=== PATIENT | male | born 1965 | race Caucasian/White ===

== ENCOUNTER 2017-04-01 08:31 | Emergency (ER) | payer OTHER ==
--- NOTE | 2017-04-01 08:43 | EDM.PDOC ---
ED HPI GENERAL MEDICAL PROBLEM - General Chief Complaint: General Stated Complaint: INJURY TO RIB Time Seen by Provider: 04/01/17 09:54 Source of Information: Reports: Patient History Limitations: Reports: No limitations - History of Present Illness INITIAL COMMENTS - FREE TEXT/NARRATIVE: History of present illness: [] Patient presents with left rib pain after he fell onto railing at work prior to arrival. Patient denies being short of breath but has pain with breathing. He denies any other injuries no loss of consciousness. Review of systems: As per history of present illness and below otherwise all systems reviewed and negative. Past medical history: As per history of present illness and as reviewed below otherwise noncontributory. Surgical history: As per history of present illness and as reviewed below otherwise noncontributory. Social history: No reported history of drug or alcohol abuse. Family history: As per history of present illness and as reviewed below otherwise noncontributory. Physical exam: General: Well developed, well nourished in NAD HEENT: Atraumatic, normocephalic, pupils reactive, negative for conjunctival pallor or scleral icterus, mucous membranes moist, throat clear, neck supple, nontender, trachea midline. Lungs: Clear to auscultation, breath sounds equal bilaterally, chest nontender. Heart: S1S2, regular, negative for clicks, rubs, or JVD. Abdomen: Soft, nondistended, nontender. Negative for masses or hepatosplenomegaly. Negative for costovertebral tenderness. Pelvis: Stable nontender. Genitourinary: Deferred. Rectal: Deferred. Extremities: Atraumatic, negative for cords or calf pain. Neurovascular unremarkable. Neuro: Awake, alert, oriented. Cranial nerves II through XII unremarkable. Cerebellum unremarkable. Motor and sensory unremarkable throughout. Exam nonfocal. Diagnostics: [] Chest x-ray negative for pneumothorax no obvious rib fractures noted Therapeutics: [] Dilaudid given in the ED Impression: [] Chest wall rib contusion Plan: [] Tramadol for pain incentive spirometry to encourage deep breathing Definitive disposition and diagnosis as appropriate pending reevaluation and review of above. Left Chest Pain Score (Numeric/FACES): 10 - Related Data Allergies Allergy/AdvReac Type Severity Reaction Status Date / Time No Known Allergies Allergy Verified 04/01/17 08:43 Home Meds: Home Meds traMADol HCl [Tramadol HCl] 50 mg PO Q6H PRN #20 tablet 04/01/17 [Rx] ED ROS GENERAL - Review of Systems Review Of Systems: See Below (See history of present illness) ED EXAM, GENERAL - Physical Exam Exam: See Below (See history of present illness) Course - Vital Signs Last Recorded V/S: Last Vital Signs Temp 36.4 C 04/01/17 08:41 Pulse 102 H 04/01/17 08:41 Resp 24 H 04/01/17 08:41 BP 167/95 H 04/01/17 08:41 Pulse Ox 94 L 04/01/17 08:41 - Orders/Labs/Meds Meds: Medications Discontinued Medications Generic Name Dose Route Start Last Admin Trade Name Freq PRN Reason Stop Dose Admin Hydromorphone HCl 0.5 mg 04/01/17 08:54 Dilaudid IVPUSH Q1H PRN Pain Hydromorphone HCl 0.5 mg 04/01/17 08:59 04/01/17 09:18 Dilaudid IM 04/01/17 09:00 0.5 mg ONETIME ONE Administration Ondansetron HCl 4 mg 04/01/17 08:54 04/01/17 09:19 Zofran Odt PO 04/01/17 08:55 4 mg ONETIME ONE Administration Tramadol HCl 100 mg 04/01/17 09:50 Ultram PO 04/01/17 09:51 ONETIME ONE Departure - Departure Time of Disposition: 09:52 Disposition: Home, Self-Care 01 Condition: good Clinical Impression: Contusion of rib on left side Qualifiers: Encounter type: initial encounter Qualified Code(s): S20.212A - Contusion of left front wall of thorax, initial encounter Prescriptions: traMADol HCl [Tramadol HCl] 50 mg PO Q6H PRN #20 tablet PRN Reason: Pain Referrals: PCP,None [Primary Care Provider] - Forms: ED Department Discharge Additional Instructions: The following information is given to patients seen in the emergency department who are being discharged to home. This information is to outline your options for follow-up care. We provide all patients seen in our emergency department with a follow-up referral. The need for follow-up, as well as the timing and circumstances, are variable depending upon the specifics of your emergency department visit. If you don't have a primary care physician on staff, we will provide you with a referral. We always advise you to contact your personal physician following an emergency department visit to inform them of the circumstance of the visit and for follow-up with them and/or the need for any referrals to a consulting specialist. The emergency department will also refer you to a specialist when appropriate. This referral assures that you have the opportunity for follow-up care with a specialist. All of these measure are taken in an effort to provide you with optimal care, which includes your follow-up. Under all circumstances we always encourage you to contact your private physician who remains a resource for coordinating your care. When calling for follow-up care, please make the office aware that this follow-up is from your recent emergency room visit. If for any reason you are refused follow-up, please contact the [facility] Emergency Department at and asked to speak to the emergency department charge nurse. Tramadol for pain, return to the ER immediately if any sudden shortness of breath, worsening pain or fevers occur [facility] [address] [place] [id number]
[2017-04-01] MEDS ORDERED: HYDROmorphone 1 MG/ML Syringe IVPUSH PRN (08:54)
[2017-04-01] MEDS ORDERED: Ondansetron 4 MG Tab.DIS PO ONE (08:54)
[2017-04-01] MEDS ORDERED: HYDROmorphone 1 MG/ML Syringe IM ONE (08:59)
--- NOTE | 2017-04-01 09:42 | CR ---
EXAMINATION: Two-view chest (PA and Lateral views). HISTORY: Shortness of breath. FINDINGS: The trachea is midline. The cardiomediastinal silhouette is within normal limits. Mild basilar atele ctasis/infiltrate. No pleural effusion or pneumothorax. Osseous structures appear unremarkable. IMPRESSION: Mild bibasilar atelectasis/infiltrate.
[2017-04-01] MEDS ORDERED: traMADol 50 MG Tab PO ONE (09:50)
[2017-04-01 11:55] VITALS: BP 149/89
== END 2017-04-01 10:35 | disposition home or self-care (01) ==
LOC: MW.ED 08:31
DX: S20.212A Contusion of left front wall of thorax, initial encounter (principal)
CPT/HCPCS: 71020; 96372; 99283; A9270; J1170; 99284

== ENCOUNTER 2019-02-02 16:32 | Inpatient (IN) | payer OTHER, MEDICAID ==
[2019-02-02] MEDS ORDERED: Hyoscyamine 0.125 MG Tab.SL SL PRN (16:40)
[2019-02-02] MEDS ORDERED: Albuterol 8 GM Inhaler INH PRN (16:44)
[2019-02-02] MEDS ORDERED: Ondansetron 8 MG Tab.DIS PO PRN (16:45)
[2019-02-02] MEDS ORDERED: Haloperidol 1 MG Tab PO PRN (16:46)
--- NOTE | 2019-02-02 16:47 | PCM.HP ---
H&P History of Present Illness - General Date of Service: 02/02/19 Admit Problem/Dx: Admission Diagnosis/Problem Admission Diagnosis/Problem Intractable pain Source of Information: Patient History Limitations: Reports: No Limitations - Related Data Allergies/Adverse Reactions: Allergies Allergy/AdvReac Type Severity Reaction Status Date / Time No Known Allergies Allergy Verified 04/01/17 08:43 Home Medications: Home Meds traMADol HCl [Tramadol HCl] 50 mg PO Q6H PRN #20 tablet 04/01/17 [Rx] Past Medical History - Past Health History Medical/Surgical History: Denies Medical/Surgical History Cardiovascular History: Reports: Hypertension Respiratory History: Reports: Bronchitis, Recurrent - Infectious Disease History Infectious Disease History: Reports: Chicken Pox Social & Family History - Family History Family Medical History: Noncontributory - Caffeine Use Caffeine Use: Reports: None Orders Last 24hrs: Active Orders 24 hr Category Date Time Status Patient Status [ADT] Routine ADT 02/02/19 16:41 Ordered Oxygen Therapy [RC] PRN Care 02/02/19 16:41 Ordered Up With Assistance [RC] ASDIRECTED Care 02/02/19 16:41 Ordered VTE/DVT Education [RC] PER UNIT ROUTINE Care 02/02/19 16:41 Ordered Vital Signs [RC] Q12H Care 02/02/19 16:41 Ordered Regular Diet [DIET] Diet 02/02/19 Dinner Ordered Methadone Med 02/02/19 18:30 Ordered 20 mg PO Q8H Morphine Med 02/02/19 16:45 Ordered 90 mg PO Q4H PRN Respiratory Rate [OM.PC] Routine Oth 02/02/19 16:46 Ordered Resuscitation Status Routine Resus Stat 02/02/19 16:41 Ordered
[2019-02-02] MEDS ORDERED: Furosemide 40 MG Tab PO PRN (16:49)
[2019-02-02] MEDS ORDERED: Polyethylene Glycol 3350 Powder 17 GM Packet PO PRN (16:51)
[2019-02-02] MEDS ORDERED: Nicotine 14 MG/24 Hr Patch TRDERM PRN (16:54)
--- NOTE | 2019-02-02 17:39 | PCM.HP ---
H&P History of Present Illness - General Date of Service: 02/02/19 Admit Problem/Dx: Admission Diagnosis/Problem Admission Diagnosis/Problem Intractable pain - History of Present Illness Initial Comments - Free Text/Narative: The patient is a 53-year-old male who was a direct admit from hospice for intractable pain. The patient has a history of stage IV lung cancer with metastases to the bone and has been on hospice. He was taking OxyContin and morphine, but that was not controlling his pain. Today, he reports pain all over. He denies chest pain or shortness of breath. He is on oxygen. He was very somnolent and doesn't doesn't really respond to questions, family is at bedside. He is unable to give us a past medical or surgical history. Family is at bedside but doesn't know the history either. Per home health/hospice records. He has a history of hypertension,COPD, PE, type 2 diabetes, CAD, [place] and AAA. - Related Data Allergies/Adverse Reactions: Allergies Allergy/AdvReac Type Severity Reaction Status Date / Time No Known Allergies Allergy Verified 04/01/17 08:43 Home Medications: Home Meds traMADol HCl [Tramadol HCl] 50 mg PO Q6H PRN #20 tablet 04/01/17 [Rx] Past Medical History - Past Health History Medical/Surgical History: Denies Medical/Surgical History Cardiovascular History: Reports: Hypertension Respiratory History: Reports: Bronchitis, Recurrent, COPD Musculoskeletal History: Reports: Arthritis Endocrine/Metabolic History: Reports: Diabetes, Type II Oncologic (Cancer) History: Reports: Bone, Lung - Infectious Disease History Infectious Disease History: Reports: Chicken Pox Social & Family History - Family History Family Medical History: Noncontributory - Tobacco Use Smoking Status *Q: Current Every Day Smoker Years of Tobacco use: 1 Packs/Tins Daily: 1 - Caffeine Use Caffeine Use: Reports: None - Recreational Drug Use Recreational Drug Use: No H&P Review of Systems - Review of Systems: Review Of Systems: Unable To Obtain (patient is somnolent but did say he has pain all over. Denies chest pain or shortness of breath currently) Exam - Exam Exam: See Below - Vital Signs Weight: 82.554 kg - Exam Quality Assessment: Supplemental Oxygen General: Lethargic Lungs: Normal Respiratory Effort, Decreased Breath Sounds Cardiovascular: Regular Rate, Regular Rhythm GI/Abdominal Exam: Normal Bowel Sounds, Soft, Non-Tender, No Distention Skin: Warm, Dry, Intact Problem List Initiated/Reviewed/Updated: Yes Orders Last 24hrs: Active Orders 24 hr Category Date Time Status Patient Status [ADT] Routine ADT 02/02/19 16:41 Active Enema [RC] ASDIRECTED Care 02/02/19 16:57 Active Oxygen Therapy [RC] PRN Care 02/02/19 16:41 Active RT Post Treatment Assessment [RC] Click to Edit Care 02/02/19 16:45 Active RT Pre-Treatment Assessment [RC] Click to Edit Care 02/02/19 16:45 Active Up With Assistance [RC] ASDIRECTED Care 02/02/19 16:41 Active VTE/DVT Education [RC] PER UNIT ROUTINE Care 02/02/19 16:41 Active Vital Signs [RC] Q12H Care 02/02/19 16:41 Active Regular Diet [DIET] Diet 02/02/19 Dinner Active Albuterol [Ventolin HFA] Med 02/02/19 16:44 Active 2 gm INH Q2H PRN Dexamethasone Med 02/03/19 09:00 Active 1 mg PO DAILY Docusate Sodium/Sennosides [Senna Plus] Med 02/02/19 16:37 Active 2 tab PO BID PRN Furosemide [Lasix] Med 02/02/19 16:49 Active 40 mg PO DAILY PRN Haloperidol [Haldol] Med 02/02/19 16:46 Active 1 mg PO Q6H PRN Hyoscyamine [Hyomax-SL] Med 02/02/19 16:40 Active 0.125 mg SL Q4H PRN LORazepam [Ativan] Med 02/02/19 16:40 Active 1 mg PO Q8H PRN Magnesium Hydroxide [Milk of Magnesia] Med 02/02/19 16:47 Active 30 ml PO DAILY PRN Methadone Med 02/02/19 18:30 Active 20 mg PO Q8HR Metoprolol Succinate [Toprol XL] Med 02/03/19 09:00 Active 100 mg PO DAILY Mirtazapine [Remeron] Med 02/02/19 21:00 Active 15 mg PO BEDTIME Morphine Med 02/02/19 16:45 Active 90 mg PO Q4H PRN Nicotine [Habitrol] Med 02/02/19 16:54 Active 14 mg TRDERM Q24H PRN Omeprazole Med 02/03/19 07:30 Active 20 mg PO ACBREAKFAST Ondansetron [Zofran ODT] Med 02/02/19 16:45 Active 8 mg PO Q8H PRN Polyethylene Glycol 3350 [MiraLAX] Med 02/02/19 16:51 Active 17 gm PO DAILY PRN Psyllium Husk/Aspartame [Metamucil Sugar Free] Med 02/03/19 09:00 Active 1 pkt PO DAILY Rivaroxaban [Xarelto] Med 02/03/19 09:00 Active 20 mg PO DAILY Respiratory Rate [OM.PC] Routine Oth 02/02/19 16:46 Ordered Resuscitation Status Routine Resus Stat 02/02/19 16:41 Ordered Medication Orders Albuterol (Ventolin Hfa) 2 gm INH Q2H PRN PRN Reason: Shortness of Breath Dexamethasone (Dexamethasone) 1 mg PO DAILY [facility] Furosemide (Lasix) 40 mg PO DAILY PRN PRN Reason: Other Haloperidol (Haldol) 1 mg PO Q6H PRN PRN Reason: Other Hyoscyamine (Hyomax-Sl) 0.125 mg SL Q4H PRN PRN Reason: Other Lorazepam (Ativan) 1 mg PO Q8H PRN PRN Reason: Anxiety Magnesium Hydroxide (Milk Of Magnesia) 30 ml PO DAILY PRN PRN Reason: Constipation Methadone HCl (Methadone) 20 mg PO Q8HR [facility] Metoprolol Succinate (Toprol Xl) 100 mg PO DAILY [facility] Mirtazapine (Remeron) 15 mg PO BEDTIME [facility] Morphine Sulfate (Morphine) 90 mg PO Q4H PRN PRN Reason: Breakthrough Pain Nicotine (Habitrol) 14 mg TRDERM Q24H PRN PRN Reason: nicotine replacement Omeprazole (Omeprazole) 20 mg PO ACBREAKFAST [facility] Ondansetron HCl (Zofran Odt) 8 mg PO Q8H PRN PRN Reason: Nausea Polyethylene Glycol (Miralax) 17 gm PO DAILY PRN PRN Reason: Constipation Psyllium Husk (Metamucil Sugar Free) 1 pkt PO DAILY [facility] Rivaroxaban (Xarelto) 20 mg PO DAILY [facility] Senna/Docusate Sodium (Senna Plus) 2 tab PO BID PRN PRN Reason: Constipation Assessment/Plan Comment:: 1. Admit as inpatient 2. Code Status- DNR/DNI/comfort care measures 3. Vitals per shift 4. Diet-regular 5. Intractable pain secondary to stage IV lung cancer with mets to the bone on hospice- Will start the patient on methadone 20 mg TID with morphine IR 90 mg q4 for breakthrough pain. PRN meds for constipation and nausea/vomiting, secretions, SOB, anxiety ordered. 6. Chronic conditions- HTN, hx PE- continue home meds
[2019-02-02] MEDS: Methadone 10 MG Tab PO SCH (18:24)
[2019-02-02] MEDS: Mirtazapine 15 MG Tab PO SCH (21:08)
[2019-02-03] MEDS: Morphine 15 MG Tab PO PRN ×3 (03:54→15:26)
[2019-02-03] MEDS: Methadone 10 MG Tab PO SCH ×3 (06:12→23:21)
[2019-02-03] MEDS: Omeprazole 20 MG Cap.CR PO SCH ×2 (06:13→06:36)
[2019-02-03] MEDS: Metoprolol Succinate 100 MG Tab.ER PO SCH (08:21)
[2019-02-03] MEDS: Rivaroxaban 10 MG Tab PO SCH (08:25)
[2019-02-03] MEDS: Psyllium Husk Powder Sugar Free 5.85 GM Packet PO SCH (09:01)
--- NOTE | 2019-02-03 09:16 | PCM.PN ---
- General Info Date of Service: 02/03/19 Subjective Update: The patient is a 53 year old male with stage IV lung cancer with mets to the bone who was admitted as inpatient hospice for intractable pain. We have changed his pain medications to methadone TID with morphine q4 for breakthrough. He reports he still has pain at a 8/10 but his pain is better here than it was at home. He denies any chest pain or abdominal pain. He does complain of SOB and pain in his hips and back. - Review of Systems General: Reports: No Symptoms HEENT: Reports: No Symptoms Pulmonary: Reports: Shortness of Breath Cardiovascular: Reports: No Symptoms Gastrointestinal: Reports: No Symptoms Genitourinary: Reports: No Symptoms Musculoskeletal: Reports: Back Pain, Joint Pain (hip) Neurological: Reports: No Symptoms Psychiatric: Reports: No Symptoms - Patient Data Vitals - Most Recent: Last Vital Signs Temp 97.3 F 02/03/19 08:00 Pulse 95 02/03/19 08:21 Resp 13 02/03/19 08:00 BP 121/73 02/03/19 08:21 Pulse Ox 93 L 02/03/19 08:00 Weight - Most Recent: 82.554 kg Med Orders - Current: Current Medications Albuterol (Ventolin Hfa) 2 gm INH Q2H PRN PRN Reason: Shortness of Breath Dexamethasone (Dexamethasone) 1 mg PO DAILY [facility] Last Admin: 02/03/19 09:00 Dose: 1 mg Furosemide (Lasix) 40 mg PO DAILY PRN PRN Reason: Other Haloperidol (Haldol) 1 mg PO Q6H PRN PRN Reason: Other Hyoscyamine (Hyomax-Sl) 0.125 mg SL Q4H PRN PRN Reason: Other Lorazepam (Ativan) 1 mg PO Q8H PRN PRN Reason: Anxiety Magnesium Hydroxide (Milk Of Magnesia) 30 ml PO DAILY PRN PRN Reason: Constipation Methadone HCl (Methadone) 20 mg PO Q8HR [facility] Last Admin: 02/03/19 06:12 Dose: 20 mg Metoprolol Succinate (Toprol Xl) 100 mg PO DAILY [facility] Last Admin: 02/03/19 08:21 Dose: 100 mg Mirtazapine (Remeron) 15 mg PO BEDTIME [facility] Last Admin: 02/02/19 21:08 Dose: 15 mg Morphine Sulfate (Morphine) 90 mg PO Q4H PRN PRN Reason: Breakthrough Pain Last Admin: 02/03/19 03:54 Dose: 90 mg Nicotine (Habitrol) 14 mg TRDERM Q24H PRN PRN Reason: nicotine replacement Omeprazole (Omeprazole) 20 mg PO ACBREAKFAST [facility] Last Admin: 02/03/19 06:36 Dose: Not Given Ondansetron HCl (Zofran Odt) 8 mg PO Q8H PRN PRN Reason: Nausea Polyethylene Glycol (Miralax) 17 gm PO DAILY PRN PRN Reason: Constipation Psyllium Husk (Metamucil Sugar Free) 1 pkt PO DAILY [facility] Last Admin: 02/03/19 09:01 Dose: 1 pkt Rivaroxaban (Xarelto) 20 mg PO DAILY [facility] Last Admin: 02/03/19 08:25 Dose: 20 mg Senna/Docusate Sodium (Senna Plus) 2 tab PO BID PRN PRN Reason: Constipation - Exam Quality Assessment: Supplemental Oxygen General: Alert, Oriented, Cooperative Lungs: Decreased Breath Sounds Cardiovascular: Regular Rate, Regular Rhythm GI/Abdominal Exam: Normal Bowel Sounds, Soft, Non-Tender, No Distention Extremities: No Pedal Edema Skin: Warm, Dry Neurological: No New Focal Deficit Psy/Mental Status: Alert, Normal Affect, Normal Mood - Problem List Review Problem List Initiated/Reviewed/Updated: Yes - Plan Plan:: 1. Intractable pain secondary to stage IV lung cancer with mets to the bone on hospice- Continue on methadone 20 mg TID with morphine IR 90 mg q4 for breakthrough pain. Patient reports better control of pain here in hospital compared to at home. PRN meds for constipation and nausea/vomiting, secretions, SOB, anxiety ordered. Home Health/Hospice did see the patient today and recommended increasing his dexamethasone from 1mg to 4 mg for bone pain. That order has been placed. 2. Chronic conditions- HTN, hx PE- continue home meds
[2019-02-03] MEDS: Mirtazapine 15 MG Tab PO SCH (23:21)
[2019-02-04] MEDS: Morphine 15 MG Tab PO PRN ×4 (01:00→21:22)
[2019-02-04] MEDS: LORazepam 1 MG Tab PO PRN (01:04)
[2019-02-04] MEDS: Methadone 10 MG Tab PO SCH ×3 (06:32→22:58)
[2019-02-04] MEDS: Omeprazole 20 MG Cap.CR PO SCH (06:33)
[2019-02-04] MEDS: Rivaroxaban 10 MG Tab PO SCH (08:57)
[2019-02-04] MEDS: Dexamethasone 4 MG Tab PO SCH (08:58)
[2019-02-04] MEDS: Metoprolol Succinate 100 MG Tab.ER PO SCH (08:58)
[2019-02-04] MEDS: Psyllium Husk Powder Sugar Free 5.85 GM Packet PO SCH (09:00)
--- NOTE | 2019-02-04 11:50 | PCM.PN ---
- General Info Date of Service: 02/04/19 Subjective Update: The patient is a 53 year old male who stage 4 lung cancer with mets to the bones who was admitted for intractable pain on hospice. The current medication regiment is working well. He states he much is a lot better. They are currently working on half-way placement as he will not be able to go home as he will not be able to go home and take care of himself. - Review of Systems General: Reports: No Symptoms HEENT: Reports: No Symptoms Pulmonary: Reports: Shortness of Breath Cardiovascular: Reports: No Symptoms Gastrointestinal: Reports: No Symptoms Genitourinary: Reports: No Symptoms Musculoskeletal: Reports: No Symptoms Skin: Reports: No Symptoms Neurological: Reports: No Symptoms Psychiatric: Reports: No Symptoms - Patient Data Vitals - Most Recent: Last Vital Signs Temp 97.8 F 02/04/19 09:00 Pulse 85 02/04/19 08:58 Resp 16 02/04/19 09:00 BP 121/75 02/04/19 09:00 Pulse Ox 96 02/04/19 09:00 Weight - Most Recent: 82.554 kg Med Orders - Current: Current Medications Albuterol (Ventolin Hfa) 2 gm INH Q2H PRN PRN Reason: Shortness of Breath Dexamethasone (Dexamethasone) 4 mg PO DAILY [facility] Last Admin: 02/04/19 08:58 Dose: 4 mg Furosemide (Lasix) 40 mg PO DAILY PRN PRN Reason: Other Haloperidol (Haldol) 1 mg PO Q6H PRN PRN Reason: Other Hyoscyamine (Hyomax-Sl) 0.125 mg SL Q4H PRN PRN Reason: Other Lorazepam (Ativan) 1 mg PO Q8H PRN PRN Reason: Anxiety Last Admin: 02/04/19 01:04 Dose: 1 mg Magnesium Hydroxide (Milk Of Magnesia) 30 ml PO DAILY PRN PRN Reason: Constipation Methadone HCl (Methadone) 20 mg PO Q8HR [facility] Last Admin: 02/04/19 06:32 Dose: 20 mg Metoprolol Succinate (Toprol Xl) 100 mg PO DAILY [facility] Last Admin: 02/04/19 08:58 Dose: 100 mg Mirtazapine (Remeron) 15 mg PO BEDTIME [facility] Last Admin: 02/03/19 23:21 Dose: Not Given Morphine Sulfate (Morphine) 90 mg PO Q4H PRN PRN Reason: Breakthrough Pain Last Admin: 02/04/19 09:30 Dose: 90 mg Nicotine (Habitrol) 14 mg TRDERM Q24H PRN PRN Reason: nicotine replacement Omeprazole (Omeprazole) 20 mg PO ACBREAKFAST [facility] Last Admin: 02/04/19 06:33 Dose: 20 mg Ondansetron HCl (Zofran Odt) 8 mg PO Q8H PRN PRN Reason: Nausea Polyethylene Glycol (Miralax) 17 gm PO DAILY PRN PRN Reason: Constipation Psyllium Husk (Metamucil Sugar Free) 1 pkt PO DAILY [facility] Last Admin: 02/04/19 09:00 Dose: Not Given Rivaroxaban (Xarelto) 20 mg PO DAILY [facility] Last Admin: 02/04/19 08:57 Dose: 20 mg Senna/Docusate Sodium (Senna Plus) 2 tab PO BID PRN PRN Reason: Constipation Discontinued Medications Dexamethasone (Dexamethasone) 1 mg PO DAILY [facility] Last Admin: 02/03/19 09:00 Dose: 1 mg Dexamethasone (Dexamethasone) 3 mg PO NOW STA Stop: 02/03/19 10:10 Last Admin: 02/03/19 10:41 Dose: 3 mg - Exam Quality Assessment: Supplemental Oxygen General: Alert, Oriented, Cooperative Lungs: Normal Respiratory Effort, Decreased Breath Sounds Cardiovascular: Regular Rate, Regular Rhythm GI/Abdominal Exam: Normal Bowel Sounds, Soft, Non-Tender, No Distention Extremities: No Pedal Edema Skin: Warm, Dry, Intact Neurological: No New Focal Deficit Psy/Mental Status: Alert, Normal Affect, Normal Mood - Problem List Review Problem List Initiated/Reviewed/Updated: Yes - Plan Plan:: 1. Intractable pain secondary to stage IV lung cancer with mets to the bone on hospice- Continue on methadone 20 mg TID with morphine IR 90 mg q4 for breakthrough pain. Patient reports better control of pain here in hospital compared to at home. PRN meds for constipation and nausea/vomiting, secretions, SOB, anxiety ordered. Hospice and case management are working on half-way placement. 2. Chronic conditions- HTN, hx PE- continue home meds
[2019-02-04] MEDS: Mirtazapine 15 MG Tab PO SCH (21:22)
[2019-02-05] MEDS: Methadone 10 MG Tab PO SCH ×3 (07:58→21:35)
[2019-02-05] MEDS: Omeprazole 20 MG Cap.CR PO SCH (07:59)
--- NOTE | 2019-02-05 08:47 | PCM.PN ---
- General Info Date of Service: 02/05/19 Subjective Update: The patient is a 53 year old male admitted for intractable pain on hospice due to stage 4 lung cancer and mets to the bone. Current regiment is working for pain control. Social work working with patient and family about placement. Patient denies any problems this morning. - Review of Systems General: Reports: No Symptoms HEENT: Reports: No Symptoms Pulmonary: Reports: No Symptoms Cardiovascular: Reports: No Symptoms Gastrointestinal: Reports: No Symptoms Genitourinary: Reports: No Symptoms Musculoskeletal: Reports: Back Pain Skin: Reports: No Symptoms Neurological: Reports: No Symptoms Psychiatric: Reports: No Symptoms - Patient Data Vitals - Most Recent: Last Vital Signs Temp 96.3 F 02/04/19 19:25 Pulse 86 02/04/19 19:25 Resp 16 02/04/19 19:25 BP 112/70 02/04/19 19:25 Pulse Ox 96 02/04/19 19:25 Weight - Most Recent: 82.554 kg I&O - Last 24 Hours: Intake & Output 02/04/19 02/05/19 02/05/19 22:59 06:59 14:59 Intake Total 300 Output Total 0 Balance 300 Med Orders - Current: Current Medications Albuterol (Ventolin Hfa) 2 gm INH Q2H PRN PRN Reason: Shortness of Breath Dexamethasone (Dexamethasone) 4 mg PO DAILY [facility] Last Admin: 02/04/19 08:58 Dose: 4 mg Furosemide (Lasix) 40 mg PO DAILY PRN PRN Reason: Other Haloperidol (Haldol) 1 mg PO Q6H PRN PRN Reason: Other Hyoscyamine (Hyomax-Sl) 0.125 mg SL Q4H PRN PRN Reason: Other Lorazepam (Ativan) 1 mg PO Q8H PRN PRN Reason: Anxiety Last Admin: 02/04/19 01:04 Dose: 1 mg Magnesium Hydroxide (Milk Of Magnesia) 30 ml PO DAILY PRN PRN Reason: Constipation Methadone HCl (Methadone) 20 mg PO Q8HR [facility] Last Admin: 02/05/19 07:58 Dose: 20 mg Metoprolol Succinate (Toprol Xl) 100 mg PO DAILY [facility] Last Admin: 02/04/19 08:58 Dose: 100 mg Mirtazapine (Remeron) 15 mg PO BEDTIME [facility] Last Admin: 02/04/19 21:22 Dose: 15 mg Morphine Sulfate (Morphine) 90 mg PO Q4H PRN PRN Reason: Breakthrough Pain Last Admin: 02/04/19 21:22 Dose: 90 mg Nicotine (Habitrol) 14 mg TRDERM Q24H PRN PRN Reason: nicotine replacement Omeprazole (Omeprazole) 20 mg PO ACBREAKFAST [facility] Last Admin: 02/05/19 07:59 Dose: 20 mg Ondansetron HCl (Zofran Odt) 8 mg PO Q8H PRN PRN Reason: Nausea Polyethylene Glycol (Miralax) 17 gm PO DAILY PRN PRN Reason: Constipation Psyllium Husk (Metamucil Sugar Free) 1 pkt PO DAILY [facility] Last Admin: 02/04/19 09:00 Dose: Not Given Rivaroxaban (Xarelto) 20 mg PO DAILY [facility] Last Admin: 02/04/19 08:57 Dose: 20 mg Senna/Docusate Sodium (Senna Plus) 2 tab PO BID PRN PRN Reason: Constipation Discontinued Medications Dexamethasone (Dexamethasone) 1 mg PO DAILY [facility] Last Admin: 02/03/19 09:00 Dose: 1 mg Dexamethasone (Dexamethasone) 3 mg PO NOW STA Stop: 02/03/19 10:10 Last Admin: 02/03/19 10:41 Dose: 3 mg - Exam Quality Assessment: Supplemental Oxygen General: Alert, Oriented, Cooperative Lungs: Normal Respiratory Effort, Decreased Breath Sounds Cardiovascular: Regular Rate, Regular Rhythm GI/Abdominal Exam: Normal Bowel Sounds, Soft, Non-Tender, No Distention Extremities: No Pedal Edema Skin: Warm, Dry Neurological: No New Focal Deficit Psy/Mental Status: Alert, Normal Affect, Normal Mood - Problem List Review Problem List Initiated/Reviewed/Updated: Yes - Plan Plan:: 1. Intractable pain secondary to stage IV lung cancer with mets to the bone on hospice- After discussion with hospice and pharmacy we will adjust pain medications. He will continue on methadone 20 mg TID but we will start methadone 5 mg q 3 hrs for breakthrough pain instead of the morphine IR. PRN meds for constipation and nausea/vomiting, secretions, SOB, anxiety ordered. Hospice/social work are working on senior care placement. 2. Chronic conditions- HTN, hx PE- continue home meds
[2019-02-05] MEDS: Metoprolol Succinate 100 MG Tab.ER PO SCH (09:55)
[2019-02-05] MEDS: Morphine 15 MG Tab PO PRN (09:56)
[2019-02-05] MEDS: Psyllium Husk Powder Sugar Free 5.85 GM Packet PO SCH (09:57)
[2019-02-05] MEDS: Dexamethasone 4 MG Tab PO SCH (09:57)
[2019-02-05] MEDS: Rivaroxaban 10 MG Tab PO SCH (09:57)
[2019-02-05] MEDS: Methadone 10 MG Tab PO PRN ×2 (16:42→19:54)
[2019-02-05] MEDS: Mirtazapine 15 MG Tab PO SCH (20:50)
[2019-02-05] MEDS: Magnesium Hydroxide 400 MG/5 ML Susp 30 ML Cup PO PRN (21:35)
[2019-02-05] MEDS: LORazepam 1 MG Tab PO PRN (21:44)
[2019-02-05] MEDS: Cyclobenzaprine 5 MG Tab PO PRN (23:17)
[2019-02-06] MEDS: Methadone 10 MG Tab PO SCH ×3 (05:16→21:54)
[2019-02-06] MEDS: Cyclobenzaprine 5 MG Tab PO PRN ×3 (05:18→21:54)
[2019-02-06] MEDS: Omeprazole 20 MG Cap.CR PO SCH (06:38)
[2019-02-06] MEDS: Dexamethasone 4 MG Tab PO SCH (08:44)
[2019-02-06] MEDS: Metoprolol Succinate 100 MG Tab.ER PO SCH (08:45)
[2019-02-06] MEDS: Rivaroxaban 10 MG Tab PO SCH (08:45)
[2019-02-06] MEDS: Psyllium Husk Powder Sugar Free 5.85 GM Packet PO SCH (08:46)
[2019-02-06] MEDS: Methadone 10 MG Tab PO PRN ×2 (09:11→19:50)
--- NOTE | 2019-02-06 10:58 | PCM.PN ---
- General Info Date of Service: 02/06/19 Subjective Update: The patient is a 53 year old male admitted for intractable pain due to lung cancer and mets. Yesterday his pain medication was adjusted to methadone scheduled TID and 5 mg of methadone q 3 hours for breakthrough pain. He reports it controlled his pain, not any different from the regiment the other day. His mother would like to take him home to [place] and has been in contact with the state senators/representatives to help with the medicaid paperwork. Our addiction social worker here is also working on the paperwork and housing options for him here in the [facility]. - Review of Systems General: Reports: No Symptoms HEENT: Reports: No Symptoms Pulmonary: Reports: Shortness of Breath Cardiovascular: Reports: No Symptoms Gastrointestinal: Reports: No Symptoms Genitourinary: Reports: No Symptoms Musculoskeletal: Reports: Back Pain Skin: Reports: No Symptoms Neurological: Reports: No Symptoms Psychiatric: Reports: No Symptoms - Patient Data Vitals - Most Recent: Last Vital Signs Temp 98.2 F 02/06/19 07:54 Pulse 86 02/06/19 08:45 Resp 20 02/06/19 07:54 BP 108/72 02/06/19 08:45 Pulse Ox 92 L 02/06/19 07:54 Weight - Most Recent: 82.554 kg I&O - Last 24 Hours: Intake & Output 02/05/19 02/06/19 02/06/19 22:59 06:59 14:59 Intake Total 1036 Balance 1036 Med Orders - Current: Current Medications Albuterol (Ventolin Hfa) 2 gm INH Q2H PRN PRN Reason: Shortness of Breath Cyclobenzaprine HCl (Flexeril) 5 mg PO TID PRN PRN Reason: muscle spasms Last Admin: 02/06/19 05:18 Dose: 5 mg Dexamethasone (Dexamethasone) 4 mg PO DAILY [facility] Last Admin: 02/06/19 08:44 Dose: 4 mg Furosemide (Lasix) 40 mg PO DAILY PRN PRN Reason: Other Haloperidol (Haldol) 1 mg PO Q6H PRN PRN Reason: Other Hyoscyamine (Hyomax-Sl) 0.125 mg SL Q4H PRN PRN Reason: Other Lorazepam (Ativan) 1 mg PO Q8H PRN PRN Reason: Anxiety Last Admin: 02/05/19 21:44 Dose: 1 mg Magnesium Hydroxide (Milk Of Magnesia) 30 ml PO DAILY PRN PRN Reason: Constipation Last Admin: 02/05/19 21:35 Dose: 30 ml Methadone HCl (Methadone) 20 mg PO Q8HR [facility] Last Admin: 02/06/19 05:16 Dose: 20 mg Methadone HCl (Methadone) 5 mg PO Q3H PRN PRN Reason: Pain Last Admin: 02/06/19 09:11 Dose: 5 mg Metoprolol Succinate (Toprol Xl) 100 mg PO DAILY [facility] Last Admin: 02/06/19 08:45 Dose: 100 mg Mirtazapine (Remeron) 15 mg PO BEDTIME [facility] Last Admin: 02/05/19 20:50 Dose: 15 mg Nicotine (Habitrol) 14 mg TRDERM Q24H PRN PRN Reason: nicotine replacement Omeprazole (Omeprazole) 20 mg PO ACBREAKFAST [facility] Last Admin: 02/06/19 06:38 Dose: 20 mg Ondansetron HCl (Zofran Odt) 8 mg PO Q8H PRN PRN Reason: Nausea Last Admin: 02/05/19 10:07 Dose: 8 mg Polyethylene Glycol (Miralax) 17 gm PO DAILY PRN PRN Reason: Constipation Psyllium Husk (Metamucil Sugar Free) 1 pkt PO DAILY [facility] Last Admin: 02/06/19 08:46 Dose: 1 pkt Rivaroxaban (Xarelto) 20 mg PO DAILY [facility] Last Admin: 02/06/19 08:45 Dose: 20 mg Senna/Docusate Sodium (Senna Plus) 2 tab PO BID PRN PRN Reason: Constipation Discontinued Medications Dexamethasone (Dexamethasone) 1 mg PO DAILY [facility] Last Admin: 02/03/19 09:00 Dose: 1 mg Dexamethasone (Dexamethasone) 3 mg PO NOW STA Stop: 02/03/19 10:10 Last Admin: 02/03/19 10:41 Dose: 3 mg Morphine Sulfate (Morphine) 90 mg PO Q4H PRN PRN Reason: Breakthrough Pain Last Admin: 02/05/19 09:56 Dose: 90 mg - Exam Quality Assessment: Supplemental Oxygen General: Alert, Oriented, Cooperative Lungs: Normal Respiratory Effort, Decreased Breath Sounds Cardiovascular: Regular Rate, Regular Rhythm GI/Abdominal Exam: Normal Bowel Sounds, Soft, Non-Tender, No Distention Extremities: No Pedal Edema Skin: Warm, Dry Neurological: No New Focal Deficit Psy/Mental Status: Alert, Normal Affect, Normal Mood - Problem List Review Problem List Initiated/Reviewed/Updated: Yes - My Orders Last 24 Hours: My Active Orders 02/05/19 11:26 Methadone 5 mg PO Q3H PRN - Plan Plan:: 1. Intractable pain secondary to stage IV lung cancer with mets to the bone on hospice- Continue methadone 20 mg TID and methadone 5 mg q 3 for breakthorugh pain. PRN meds for constipation and nausea/vomiting, secretions, SOB, anxiety ordered. Hospice/social work are working on [facility] placement. The mother reports she has been in contact with social work about her plans to move him to [place]. 2. Chronic conditions- HTN, hx PE- continue home meds
[2019-02-06] MEDS: LORazepam 1 MG Tab PO PRN (16:44)
[2019-02-06] MEDS: Mirtazapine 15 MG Tab PO SCH (21:54)
[2019-02-07] MEDS: Methadone 10 MG Tab PO PRN ×4 (00:15→23:30)
[2019-02-07] MEDS: Methadone 10 MG Tab PO SCH ×3 (05:50→21:35)
[2019-02-07] MEDS: Omeprazole 20 MG Cap.CR PO SCH (06:51)
[2019-02-07] MEDS: Cyclobenzaprine 5 MG Tab PO PRN (06:54)
[2019-02-07] MEDS: Metoprolol Succinate 100 MG Tab.ER PO SCH (09:16)
[2019-02-07] MEDS: Rivaroxaban 10 MG Tab PO SCH (09:17)
[2019-02-07] MEDS: Psyllium Husk Powder Sugar Free 5.85 GM Packet PO SCH (09:18)
[2019-02-07] MEDS: Dexamethasone 4 MG Tab PO SCH (09:18)
--- NOTE | 2019-02-07 09:49 | PCM.PN ---
- General Info Date of Service: 02/07/19 - Review of Systems Systems Review Comment:: pain controlled - Patient Data Vitals - Most Recent: Last Vital Signs Temp 36.5 C 02/07/19 08:04 Pulse 78 02/07/19 09:16 Resp 20 02/07/19 08:04 BP 117/74 02/07/19 09:16 Pulse Ox 94 L 02/07/19 08:04 Weight - Most Recent: 82.554 kg Med Orders - Current: Current Medications Albuterol (Ventolin Hfa) 2 gm INH Q2H PRN PRN Reason: Shortness of Breath Cyclobenzaprine HCl (Flexeril) 5 mg PO TID PRN PRN Reason: muscle spasms Last Admin: 02/07/19 06:54 Dose: 5 mg Dexamethasone (Dexamethasone) 4 mg PO DAILY [facility] Last Admin: 02/07/19 09:18 Dose: 4 mg Furosemide (Lasix) 40 mg PO DAILY PRN PRN Reason: Other Haloperidol (Haldol) 1 mg PO Q6H PRN PRN Reason: Other Hyoscyamine (Hyomax-Sl) 0.125 mg SL Q4H PRN PRN Reason: Other Lorazepam (Ativan) 1 mg PO Q8H PRN PRN Reason: Anxiety Last Admin: 02/06/19 16:44 Dose: 1 mg Magnesium Hydroxide (Milk Of Magnesia) 30 ml PO DAILY PRN PRN Reason: Constipation Last Admin: 02/05/19 21:35 Dose: 30 ml Methadone HCl (Methadone) 20 mg PO Q8HR [facility] Last Admin: 02/07/19 05:50 Dose: 20 mg Methadone HCl (Methadone) 5 mg PO Q3H PRN PRN Reason: Pain Last Admin: 02/07/19 07:57 Dose: 5 mg Metoprolol Succinate (Toprol Xl) 100 mg PO DAILY [facility] Last Admin: 02/07/19 09:16 Dose: 100 mg Mirtazapine (Remeron) 15 mg PO BEDTIME [facility] Last Admin: 02/06/19 21:54 Dose: 15 mg Nicotine (Habitrol) 14 mg TRDERM Q24H PRN PRN Reason: nicotine replacement Omeprazole (Omeprazole) 20 mg PO ACBREAKFAST [facility] Last Admin: 02/07/19 06:51 Dose: 20 mg Ondansetron HCl (Zofran Odt) 8 mg PO Q8H PRN PRN Reason: Nausea Last Admin: 02/05/19 10:07 Dose: 8 mg Polyethylene Glycol (Miralax) 17 gm PO DAILY PRN PRN Reason: Constipation Psyllium Husk (Metamucil Sugar Free) 1 pkt PO DAILY [facility] Last Admin: 02/07/19 09:18 Dose: 1 pkt Rivaroxaban (Xarelto) 20 mg PO DAILY [facility] Last Admin: 02/07/19 09:17 Dose: 20 mg Senna/Docusate Sodium (Senna Plus) 2 tab PO BID PRN PRN Reason: Constipation Last Admin: 02/07/19 09:19 Dose: 2 tab Discontinued Medications Dexamethasone (Dexamethasone) 1 mg PO DAILY [facility] Last Admin: 02/03/19 09:00 Dose: 1 mg Dexamethasone (Dexamethasone) 3 mg PO NOW STA Stop: 02/03/19 10:10 Last Admin: 02/03/19 10:41 Dose: 3 mg Morphine Sulfate (Morphine) 90 mg PO Q4H PRN PRN Reason: Breakthrough Pain Last Admin: 02/05/19 09:56 Dose: 90 mg - Exam General: Alert, Oriented Neck: Supple Lungs: Clear to Auscultation, Normal Respiratory Effort Cardiovascular: Regular Rate, Regular Rhythm GI/Abdominal Exam: Normal Bowel Sounds, Soft, Non-Tender Extremities: No Pedal Edema - Problem List Review Problem List Initiated/Reviewed/Updated: Yes - Plan Plan:: 53 yo male admitted for pain control for stage 4 lung cancer. Pain conrolled with methadone 20mg TID and 5mg prn. Discharge pending placement. Patient is wanting to go to [place] where he has a cousin that works for Hospice.
[2019-02-07] MEDS: Magnesium Hydroxide 400 MG/5 ML Susp 30 ML Cup PO PRN (17:09)
[2019-02-07] MEDS: Mirtazapine 15 MG Tab PO SCH (21:35)
[2019-02-08] MEDS: Cyclobenzaprine 5 MG Tab PO PRN (00:13)
[2019-02-08] MEDS: Methadone 10 MG Tab PO PRN ×2 (04:42→09:09)
[2019-02-08] MEDS: Methadone 10 MG Tab PO SCH (05:46)
--- NOTE | 2019-02-08 08:34 | PCM.PN ---
- General Info Date of Service: 02/08/19 Subjective Update: Patient reported more pain yesterday and today. He thinks his pain medications need to be adjusted. He has had trouble with constipation over the weekend and ended up getting an enema. He is wanting to go back home to [place] to get set up with hospice there. His mother is working on it. - Review of Systems General: Reports: No Symptoms HEENT: Reports: No Symptoms Pulmonary: Reports: Shortness of Breath Cardiovascular: Reports: No Symptoms Gastrointestinal: Reports: No Symptoms Genitourinary: Reports: No Symptoms Musculoskeletal: Reports: No Symptoms Skin: Reports: No Symptoms Neurological: Reports: No Symptoms Psychiatric: Reports: No Symptoms - Patient Data Vitals - Most Recent: Last Vital Signs Temp 97.6 F 02/07/19 19:45 Pulse 79 02/07/19 19:45 Resp 16 02/07/19 19:45 BP 96/58 L 02/07/19 19:45 Pulse Ox 93 L 02/07/19 19:45 Weight - Most Recent: 82.554 kg Med Orders - Current: Current Medications Albuterol (Ventolin Hfa) 2 gm INH Q2H PRN PRN Reason: Shortness of Breath Cyclobenzaprine HCl (Flexeril) 5 mg PO TID PRN PRN Reason: muscle spasms Last Admin: 02/08/19 00:13 Dose: 5 mg Dexamethasone (Dexamethasone) 4 mg PO DAILY [facility] Last Admin: 02/07/19 09:18 Dose: 4 mg Furosemide (Lasix) 40 mg PO DAILY PRN PRN Reason: Other Haloperidol (Haldol) 1 mg PO Q6H PRN PRN Reason: Other Hyoscyamine (Hyomax-Sl) 0.125 mg SL Q4H PRN PRN Reason: Other Lorazepam (Ativan) 1 mg PO Q8H PRN PRN Reason: Anxiety Last Admin: 02/06/19 16:44 Dose: 1 mg Magnesium Hydroxide (Milk Of Magnesia) 30 ml PO DAILY PRN PRN Reason: Constipation Last Admin: 02/07/19 17:09 Dose: 30 ml Methadone HCl (Methadone) 20 mg PO Q8HR [facility] Last Admin: 02/08/19 05:46 Dose: 20 mg Methadone HCl (Methadone) 5 mg PO Q3H PRN PRN Reason: Pain Last Admin: 02/08/19 04:42 Dose: 5 mg Metoprolol Succinate (Toprol Xl) 100 mg PO DAILY [facility] Last Admin: 02/07/19 09:16 Dose: 100 mg Mirtazapine (Remeron) 15 mg PO BEDTIME [facility] Last Admin: 02/07/19 21:35 Dose: 15 mg Nicotine (Habitrol) 14 mg TRDERM Q24H PRN PRN Reason: nicotine replacement Omeprazole (Omeprazole) 20 mg PO ACBREAKFAST [facility] Last Admin: 02/07/19 06:51 Dose: 20 mg Ondansetron HCl (Zofran Odt) 8 mg PO Q8H PRN PRN Reason: Nausea Last Admin: 02/05/19 10:07 Dose: 8 mg Polyethylene Glycol (Miralax) 17 gm PO DAILY PRN PRN Reason: Constipation Psyllium Husk (Metamucil Sugar Free) 1 pkt PO DAILY [facility] Last Admin: 02/07/19 09:18 Dose: 1 pkt Rivaroxaban (Xarelto) 20 mg PO DAILY [facility] Last Admin: 02/07/19 09:17 Dose: 20 mg Senna/Docusate Sodium (Senna Plus) 2 tab PO BID PRN PRN Reason: Constipation Last Admin: 02/07/19 09:19 Dose: 2 tab Discontinued Medications Dexamethasone (Dexamethasone) 1 mg PO DAILY [facility] Last Admin: 02/03/19 09:00 Dose: 1 mg Dexamethasone (Dexamethasone) 3 mg PO NOW STA Stop: 02/03/19 10:10 Last Admin: 02/03/19 10:41 Dose: 3 mg Morphine Sulfate (Morphine) 90 mg PO Q4H PRN PRN Reason: Breakthrough Pain Last Admin: 02/05/19 09:56 Dose: 90 mg - Exam Quality Assessment: Supplemental Oxygen General: Alert, Oriented, Cooperative Lungs: Decreased Breath Sounds Cardiovascular: Regular Rate, Regular Rhythm GI/Abdominal Exam: Normal Bowel Sounds, Soft, Non-Tender, No Distention Extremities: No Pedal Edema Skin: Warm, Dry Neurological: No New Focal Deficit Psy/Mental Status: Alert, Normal Affect, Normal Mood - Problem List Review Problem List Initiated/Reviewed/Updated: Yes - Plan Plan:: 1. Intractable pain secondary to stage IV lung cancer with mets to the bone on hospice- Continue methadone 20 mg TID and methadone 5 mg q 3 for breakthorugh pain. Increase breakthrough methadone dose. PRN meds for constipation and nausea /vomiting, secretions, SOB, anxiety ordered. Continue to work with social work regarding placement. 2. Chronic conditions- HTN, hx PE- continue home meds
[2019-02-08] MEDS: Omeprazole 20 MG Cap.CR PO SCH (09:10)
[2019-02-08] MEDS: Rivaroxaban 10 MG Tab PO SCH (09:37)
[2019-02-08] MEDS: Metoprolol Succinate 100 MG Tab.ER PO SCH (09:38)
[2019-02-08] MEDS: Dexamethasone 4 MG Tab PO SCH (09:39)
[2019-02-08] MEDS: Psyllium Husk Powder Sugar Free 5.85 GM Packet PO SCH (09:41)
[2019-02-08] MEDS ORDERED: Cyclobenzaprine 5 MG Tab PO PRN (10:42)
--- NOTE | 2019-02-08 10:54 | PCM.DCSUM1 ---
<Indu Mayes - Last Filed: 02/08/19 12:50> Discharge Summary - Hospital Course HPI Initial Comments: Admission Date: 02/02/19 Discharge Date: 02/08/19 Admission Diagnosis: 1. 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 Chronic conditions- PE/HTN Discharge Diagnosis: 1. 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 Chronic conditions- PE/HTN Procedures: None Consults: None Hospital Course: The patient is a 53-year-old male who was a direct admit from hospice due to intractable pain secondary to his stage IV lung cancer and metastases to the bone. He was requiring high doses of OxyContin and morphine at home. He was admitted to the medical surgical floor. He was started on methadone 3 times a day and morphine for breakthrough pain. After discussion with pharmacy it was deemed that a better option would be baseline methadone with methadone for breakthrough pain. He did well on this for a few days but then was requiring more doses of breakthrough pain so medications were adjusted again. He will be discharged with 40 mg of methadone q12 with 5 mg of methadone q 3 prn for breakthrough. He was placed on prn medications to help control anxiety, constipation, muscle spasms, and shortness of breath. We worked with hospice/social work and family in finding a more stable living environment to help manage his medications and pain. Social work started Medicaid application and housing applications but in the end the patient decided he wanted to return home to [place]. His cousin, found him placement in a assisted there. His family is going to drive him down there. Hospice will get medications and oxygen for discharge. Disposition: Home Discharge Condition: Vitals stable, tolerating oral diet, pain better controlled Discharge Instructions: regular diet as tolerated, activity as tolerated, oxygen titrated to keep o2 above 88%, take medications as prescribed. Symptoms to report to provider include fever/chills, chest pain, shortness of breath, abdominal pain, nausea/vomiting, erythema, or discharge/drainage. Discharge Medications: Albuterol [Ventolin HFA] 2 gm INH Q2H PRN inhaler Cyclobenzaprine [Flexeril] 10 mg PO TID PRN tablet Dexamethasone 4 mg PO DAILY tablet Furosemide [Lasix] 40 mg PO DAILY PRN tablet Haloperidol [Haldol] 1 mg PO Q6H PRN tablet Hyoscyamine [Hyomax-SL] 0.125 mg SL Q4H PRN tab.sl LORazepam [Ativan] 1 mg PO Q8H PRN tablet Magnesium Hydroxide [Milk of Magnesia] 30 ml PO DAILY PRN Methadone 5 mg PO Q3H PRN tablet Methadone 40 mg PO BID tablet Metoprolol Succinate [Toprol XL 100mg] 100 mg PO DAILY tab.er Mirtazapine [Remeron] 15 mg PO BEDTIME tablet Nicotine [Habitrol] 14 mg TRDERM Q24H PRN patch Omeprazole 20 mg PO ACBREAKFAST cap.cr Ondansetron [Zofran Odt] 8 mg PO Q8H PRN tab.dis Polyethylene Glycol 3350 [MiraLAX] 17 gm PO DAILY PRN packet Psyllium Husk/Aspartame [Metamucil Sugar Free] 1 pkt PO DAILY packet Rivaroxaban [Xarelto] 20 mg PO DAILY tablet Follow-up: PCP in [place] - Discharge Data Discharge Date: 02/08/19 Discharge Disposition: Home, Self-Care 01 Condition: Fair - Discharge Plan Home Medications: Home Meds Albuterol [Ventolin HFA] 2 gm INH Q2H PRN inhaler 02/08/19 [Rx] Cyclobenzaprine [Flexeril] 10 mg PO TID PRN tablet 02/08/19 [Rx] Dexamethasone 4 mg PO DAILY tablet 02/08/19 [Rx] Furosemide [Lasix] 40 mg PO DAILY PRN tablet 02/08/19 [Rx] Haloperidol [Haldol] 1 mg PO Q6H PRN tablet 02/08/19 [Rx] Hyoscyamine [Hyomax-SL] 0.125 mg SL Q4H PRN tab.sl 02/08/19 [Rx] LORazepam [Ativan] 1 mg PO Q8H PRN tablet 02/08/19 [Rx] Magnesium Hydroxide [Milk of Magnesia] 30 ml PO DAILY PRN cup 02/08/19 [Rx] Methadone 5 mg PO Q3H PRN tablet 02/08/19 [Rx] Methadone 40 mg PO BID tablet 02/08/19 [Rx] Metoprolol Succinate [Toprol XL 100mg] 100 mg PO DAILY tab.er 02/08/19 [Rx] Mirtazapine [Remeron] 15 mg PO BEDTIME tablet 02/08/19 [Rx] Nicotine [Habitrol] 14 mg TRDERM Q24H PRN patch 02/08/19 [Rx] Omeprazole 20 mg PO ACBREAKFAST cap.cr 02/08/19 [Rx] Ondansetron [Zofran Odt] 8 mg PO Q8H PRN tab.dis 02/08/19 [Rx] Polyethylene Glycol 3350 [MiraLAX] 17 gm PO DAILY PRN packet 02/08/19 [Rx] Psyllium Husk/Aspartame [Metamucil Sugar Free] 1 pkt PO DAILY packet 02/08/19 [ Rx] Rivaroxaban [Xarelto] 20 mg PO DAILY tablet 02/08/19 [Rx] Patient Handouts: What You Need to Know About Chronic Back Pain, Hospice - Discharge Summary/Plan Comment DC Time >30 min.: Yes - Patient Data Vitals - Most Recent: Last Vital Signs Temp 97.6 F 02/07/19 19:45 Pulse 89 02/08/19 09:38 Resp 16 02/07/19 19:45 BP 112/61 02/08/19 09:38 Pulse Ox 93 L 02/07/19 19:45 Weight - Most Recent: 82.554 kg Med Orders - Current: Current Medications Albuterol (Ventolin Hfa) 2 gm INH Q2H PRN PRN Reason: Shortness of Breath Cyclobenzaprine HCl (Flexeril) 10 mg PO TID PRN PRN Reason: muscle spasms Dexamethasone (Dexamethasone) 4 mg PO DAILY JAMIA Last Admin: 02/08/19 09:39 Dose: 4 mg Furosemide (Lasix) 40 mg PO DAILY PRN PRN Reason: Other Haloperidol (Haldol) 1 mg PO Q6H PRN PRN Reason: Other Hyoscyamine (Hyomax-Sl) 0.125 mg SL Q4H PRN PRN Reason: Other Lorazepam (Ativan) 1 mg PO Q8H PRN PRN Reason: Anxiety Last Admin: 02/06/19 16:44 Dose: 1 mg Magnesium Hydroxide (Milk Of Magnesia) 30 ml PO DAILY PRN PRN Reason: Constipation Last Admin: 02/07/19 17:09 Dose: 30 ml Methadone HCl (Methadone) 5 mg PO Q3H PRN PRN Reason: Pain Last Admin: 02/08/19 09:09 Dose: 5 mg Methadone HCl (Methadone) 40 mg PO BID [facility] Metoprolol Succinate (Toprol Xl) 100 mg PO DAILY [facility] Last Admin: 02/08/19 09:38 Dose: 100 mg Mirtazapine (Remeron) 15 mg PO BEDTIME [facility] Last Admin: 02/07/19 21:35 Dose: 15 mg Nicotine (Habitrol) 14 mg TRDERM Q24H PRN PRN Reason: nicotine replacement Omeprazole (Omeprazole) 20 mg PO ACBREAKFAST [facility] Last Admin: 02/08/19 09:10 Dose: 20 mg Ondansetron HCl (Zofran Odt) 8 mg PO Q8H PRN PRN Reason: Nausea Last Admin: 02/05/19 10:07 Dose: 8 mg Polyethylene Glycol (Miralax) 17 gm PO DAILY PRN PRN Reason: Constipation Psyllium Husk (Metamucil Sugar Free) 1 pkt PO DAILY [facility] Last Admin: 02/08/19 09:41 Dose: 1 pkt Rivaroxaban (Xarelto) 20 mg PO DAILY [facility] Last Admin: 02/08/19 09:37 Dose: 20 mg Senna/Docusate Sodium (Senna Plus) 2 tab PO BID PRN PRN Reason: Constipation Last Admin: 02/07/19 09:19 Dose: 2 tab Discontinued Medications Cyclobenzaprine HCl (Flexeril) 5 mg PO TID PRN PRN Reason: muscle spasms Last Admin: 02/08/19 00:13 Dose: 5 mg Dexamethasone (Dexamethasone) 1 mg PO DAILY [facility] Last Admin: 02/03/19 09:00 Dose: 1 mg Dexamethasone (Dexamethasone) 3 mg PO NOW STA Stop: 02/03/19 10:10 Last Admin: 02/03/19 10:41 Dose: 3 mg Methadone HCl (Methadone) 20 mg PO Q8HR [facility] Last Admin: 02/08/19 05:46 Dose: 20 mg Morphine Sulfate (Morphine) 90 mg PO Q4H PRN PRN Reason: Breakthrough Pain Last Admin: 02/05/19 09:56 Dose: 90 mg <Micah Vigil J - Last Filed: 02/09/19 11:50> - Patient Data Vitals - Most Recent: Last Vital Signs Temp 36.5 C 02/08/19 12:06 Pulse 82 02/08/19 12:06 Resp 18 03/18/19 12:06 BP 113/67 02/08/19 12:06 Pulse Ox 91 L 02/08/19 12:10 Med Orders - Current: Current Medications Discontinued Medications Albuterol (Ventolin Hfa) 2 gm INH Q2H PRN PRN Reason: Shortness of Breath Cyclobenzaprine HCl (Flexeril) 5 mg PO TID PRN PRN Reason: muscle spasms Last Admin: 02/08/19 00:13 Dose: 5 mg Cyclobenzaprine HCl (Flexeril) 10 mg PO TID PRN PRN Reason: muscle spasms Last Admin: 02/08/19 11:59 Dose: 10 mg Dexamethasone (Dexamethasone) 1 mg PO DAILY [facility] Last Admin: 02/03/19 09:00 Dose: 1 mg Dexamethasone (Dexamethasone) 3 mg PO NOW STA Stop: 02/03/19 10:10 Last Admin: 02/03/19 10:41 Dose: 3 mg Dexamethasone (Dexamethasone) 4 mg PO DAILY [facility] Last Admin: 02/08/19 09:39 Dose: 4 mg Furosemide (Lasix) 40 mg PO DAILY PRN PRN Reason: Other Haloperidol (Haldol) 1 mg PO Q6H PRN PRN Reason: Other Hyoscyamine (Hyomax-Sl) 0.125 mg SL Q4H PRN PRN Reason: Other Lorazepam (Ativan) 1 mg PO Q8H PRN PRN Reason: Anxiety Last Admin: 02/06/19 16:44 Dose: 1 mg Magnesium Hydroxide (Milk Of Magnesia) 30 ml PO DAILY PRN PRN Reason: Constipation Last Admin: 02/07/19 17:09 Dose: 30 ml Methadone HCl (Methadone) 20 mg PO Q8HR [facility] Last Admin: 02/08/19 05:46 Dose: 20 mg Methadone HCl (Methadone) 5 mg PO Q3H PRN PRN Reason: Pain Last Admin: 02/08/19 09:09 Dose: 5 mg Methadone HCl (Methadone) 40 mg PO BID [facility] Methadone HCl (Methadone) 20 mg PO ONETIME ONE Stop: 02/08/19 11:46 Last Admin: 02/08/19 11:58 Dose: 20 mg Metoprolol Succinate (Toprol Xl) 100 mg PO DAILY [facility] Last Admin: 02/08/19 09:38 Dose: 100 mg Mirtazapine (Remeron) 15 mg PO BEDTIME [facility] Last Admin: 02/07/19 21:35 Dose: 15 mg Morphine Sulfate (Morphine) 90 mg PO Q4H PRN PRN Reason: Breakthrough Pain Last Admin: 02/05/19 09:56 Dose: 90 mg Nicotine (Habitrol) 14 mg TRDERM Q24H PRN PRN Reason: nicotine replacement Omeprazole (Omeprazole) 20 mg PO ACBREAKFAST [facility] Last Admin: 02/08/19 09:10 Dose: 20 mg Ondansetron HCl (Zofran Odt) 8 mg PO Q8H PRN PRN Reason: Nausea Last Admin: 02/05/19 10:07 Dose: 8 mg Polyethylene Glycol (Miralax) 17 gm PO DAILY PRN PRN Reason: Constipation Psyllium Husk (Metamucil Sugar Free) 1 pkt PO DAILY [facility] Last Admin: 02/08/19 09:41 Dose: 1 pkt Rivaroxaban (Xarelto) 20 mg PO DAILY [facility] Last Admin: 02/08/19 09:37 Dose: 20 mg Senna/Docusate Sodium (Senna Plus) 2 tab PO BID PRN PRN Reason: Constipation Last Admin: 02/07/19 09:19 Dose: 2 tab - Free Text/Narrative Note: I have seen and evaluated the patient. I have discussed findings and treatment plan with the resident. I agree with the assessment and plan outlined in the following note.
[2019-02-08] MEDS ORDERED: Methadone 10 MG Tab PO ONE (11:45)
[2019-02-08 12:08] VITALS: BP 113/67
[2019-02-08] MEDS ORDERED: Methadone 10 MG Tab PO SCH (21:00)
== END 2019-02-08 15:00 | disposition home or self-care (01) | DRG 948 ==
LOC: MW.MS 16:32
PROVIDERS: ADMIT Internal Medicine; ATTEND Internal Medicine
DX: G89.3 Neoplasm related pain (acute) (chronic) (principal); C34.90 Malignant neoplasm of unspecified part of unspecified bronchus or lung; C79.51 Secondary malignant neoplasm of bone; I10 Essential (primary) hypertension; F41.9 Anxiety disorder, unspecified; K59.00 Constipation, unspecified; M62.838 Other muscle spasm; J44.9 Chronic obstructive pulmonary disease, unspecified; E11.9 Type 2 diabetes mellitus without complications; I25.2 Old myocardial infarction; I25.10 Atherosclerotic heart disease of native coronary artery without angina pectoris; I71.4 Abdominal aortic aneurysm, without rupture; M19.90 Unspecified osteoarthritis, unspecified site; F17.210 Nicotine dependence, cigarettes, uncomplicated; Z66 Do not resuscitate; Z79.899 Other long term (current) drug therapy; Z79.891 Long term (current) use of opiate analgesic; Z86.711 Personal history of pulmonary embolism; Z99.81 Dependence on supplemental oxygen; Z51.5 Encounter for palliative care
CPT/HCPCS: A9270-GY; J8540